=== PATIENT | male | born 1980 | race Caucasian/White ===

== ENCOUNTER 2023-04-06 09:57 | Emergency (ER) | payer MEDICAID ==
[~2023-04-06] VITALS: Ht 182.8 cm; Wt 93.0 kg
[~2023-04-06 09:57] MED LIST: AMOXICILLIN500 MG PO; ATARAX25 MG PO; BENADRYL50 MG PO; NKHM PO; PREDNICOT20 MG PO; PREDNISONE10 MG PO
[2023-04-06] MEDS ORDERED: Tdap Vaccine 0.5 ML SYR (Adult Vaccine) IM ONE (10:15)
[2023-04-06] MEDS ORDERED: ceFAZolin sodium 1 GM VIAL IM ONE (10:15)
[2023-04-06] MEDS ORDERED: Water, Sterile 10 ML VIAL ONE (10:45)
[2023-04-06] MEDS ORDERED: CEPHALEXIN500 M1 PO (12:05)
[2023-04-06] MEDS ORDERED: TRAMADOL HCL50 MG PO (12:23)
== END 2023-04-06 12:21 | disposition home or self-care (01) ==
LOC: ED 09:57
DX: S62.636A Displaced fracture of distal phalanx of right little finger, initial encounter for closed fracture (principal); S62.664A Nondisplaced fracture of distal phalanx of right ring finger, initial encounter for closed fracture; S61.216A Laceration without foreign body of right little finger without damage to nail, initial encounter; W23.0XXA Caught, crushed, jammed, or pinched between moving objects, initial encounter; Y93.89 Activity, other specified; Y92.89 Other specified places as the place of occurrence of the external cause; Y99.0 Civilian activity done for income or pay